=== PATIENT | male | born 1990 ===

== ENCOUNTER 2017-06-12 17:36 | Emergency (ER) | payer MEDICARE, OTHER ==
[2017-06-12 17:37] VITALS: BMI 18.9
[2017-06-12 17:46] VITALS: BP 111/72; PULSE 77; RESP 18; TEMP 97.9; O2SAT 98
[2017-06-12] MEDS ORDERED: Tetanus/Diphtheria Toxoids 0.5 ml Syringe IM ONE ×2 (17:58→18:15)
[2017-06-12] MEDS ORDERED: Lidocaine 2% Inj (20ml) INFIL ONE (17:59)
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
[2017-06-12] MEDS ORDERED: Lidocaine 2% Inj (20ml) ONE (18:17)
== END 2017-06-12 18:41 | disposition home or self-care (01) ==
LOC: C.ER 17:36
DX: S71.112A Laceration without foreign body, left thigh, initial encounter (principal); W25.XXXA Contact with sharp glass, initial encounter; Y93.E9 Activity, other interior property and clothing maintenance; Y92.008 Other place in unspecified non-institutional (private) residence as the place of occurrence of the external cause